=== PATIENT | female | born 1990 | race Hispanic/Latino ===

== ENCOUNTER 2021-09-28 13:45 | Inpatient (IN) | payer SELFPAY ==
[2021-09-28] MEDS ORDERED: Ringers Lactate 1,000 ML IV ONE (14:08)
[2021-09-28] MEDS ORDERED: CLINDAMYCIN 900MG/D5W 900 MG/50 ML IVPB IV ONE (14:09)
[2021-09-28] MEDS ORDERED: OXYTOCIN/LR 20 UNIT/1,000 ML BAG IV ONE (14:09)
[2021-09-28] MEDS ORDERED: METHYLERGONOVINE 0.2MG/ML AMP IM PRN (14:11)
[2021-09-28] MEDS ORDERED: BUTORPHANOL 1 MG/ML INJ IV PRN (14:11)
[2021-09-28] MEDS ORDERED: Ringers Lactate 1,000 ML IV PRN (14:11)
[2021-09-28] MEDS ORDERED: CARBOPROST TROME 250 MCG/ML IM PRN (14:11)
[2021-09-28] MEDS ORDERED: PROMETHAZINE INJ 25 MG/ML AMP IV PRN (14:11)
[2021-09-28 14:42] LABS: Absolute Lymphocytes (CBC) 1.5 K/uL (0.7-4.9); Hematocrit 28.4 % (36.0-45.0); Lymphocytes % 12.5 % (15.3-44.8); MPV 8.4 fL (7.6-11.3); RBC Red Blood Cell Count 4.12 M/uL (3.86-4.86)
[2021-09-28 14:48] LABS: Barbiturates NEGATIVE (NEGATIVE); Benzodiazepines NEGATIVE (NEGATIVE); Cocaine NEGATIVE (NEGATIVE); METHAMPHETAM NEGATIVE (NEGATIVE); Methadone NEGATIVE (NEGATIVE); Opiates NEGATIVE (NEGATIVE); Phencyclidine NEGATIVE (NEGATIVE); THC Cannibis NEGATIVE (NEGATIVE)
[2021-09-28] MEDS ORDERED: Ringers Lactate 1,000 ML IV SCH (15:00)
[2021-09-28] MEDS ORDERED: CLINDAMYCIN 900MG/D5W 900 MG/50 ML IVPB IV SCH (15:00)
[2021-09-28] MEDS ORDERED: OXYTOCIN/LR 20 UNIT/1,000 ML BAG IV SCH ×2 (15:00→17:00)
[2021-09-28 15:22] LABS: Urine Appearance Clear (Clear); Urine Bilirubin Negative (Negative); Urine Blood 1+ (Negative); Urine Color Yellow (Yellow); Urine Glucose Negative (Negative); Urine Protein 1+ (Negative); Urine Specific Gravity >=1.030 (1.005-1.030); Urine Urobilinogen 0.2 mg/dL (0.2-1.0)
[2021-09-28 15:24] LABS: Urine Microscopic Reflex ORDER UMIC
[2021-09-28 15:29] LABS: Urine Bacteria >50 /HPF (<20); Urine RBC <5 /HPF (NONE SEEN)
[2021-09-28] MEDS ORDERED: LIDOCAINE 1% MPF 30 ML VIAL ONE (15:31)
[2021-09-28 16:16] VITALS: BMI 28.8
[2021-09-28] MEDS ORDERED: ZOLPIDEM TARTRATE 5 MG TABLET PO PRN (16:43)
[2021-09-28] MEDS ORDERED: DOCUSATE NA/SENNA CONC 1 TAB PO PRN (16:43)
[2021-09-28] MEDS ORDERED: METHYLERGONOVINE 0.2 MG TAB PO PRN (16:43)
[2021-09-28] MEDS ORDERED: Oxycodone HCl/Acetaminophen 1 TAB TAB PO PRN ×2 (16:43)
[2021-09-28] MEDS ORDERED: BISACODYL 10 MG RECTAL SUPP RC PRN (16:43)
[2021-09-28] MEDS ORDERED: IBUPROFEN 200 MG TAB PO PRN (16:43)
[2021-09-28 17:13] LABS: Anisocytosis 1+; Blood Morphology Comment NOTED (NOT SEEN); Platelet Estimate ADEQ; White Blood Cell Scan OK (OK)
[2021-09-28] MEDS ORDERED: CLINDAMYCIN INJ 900 MG in NA CHLORIDE 0.9% 50 ML IV SCH (21:00)
--- NOTE | 2021-09-29 03:31 | DN ---
Date of Procedure: 09/28/2021 Surgeon: Mook Mccall Diagnoses: 1.Intrauterine , 38 weeks of gestation, delivered. 2.Active labor. 3.Single live . Procedure Preformed: Normal vaginal delivery with intact delivery of the placenta. Estimated Blood Loss: 250 cc. Anesthesia: None. Complications: None. Indications: Suzy Coombs is a 31-year-old female, G4, P3, with uncertain last menstrual neil od that give her due date of 11/06/2021 but third trimester sonogram showing a due date of 10/05/2021 , that puts her at about 38 weeks of gestation. Spontaneous labor today, came to the hospital contra cting about every 3 minutes apart, 5 cm dilated, in active phase. Maternal- condition is stable . Patient is GBS unknown. She is allergic to amoxicillin. Therefore, clindamycin was given to her. She was admitted, undergoing usual normal testing. Only thing remarkable is hemoglobin using the n ight range, otherwise unremarkable. I reevaluated her and performed the artificial rupture of membra ne showing clear fluid, 8 cm dilated, completely effaced, -1 station. Surely, she wished a second st age of labor. At this time, her legs were placed up in stirrups. Vaginal area prepped and washed by using diluted Betadine prep and she was draped in sterile fashion. The baby presented OP. With mat ernal pushes, the baby turned to OP and delivered in OP position. There was a nuchal cord around the neck that was reduced overhead, followed by delivery of the right shoulder first, followed by left s houlder, and delivery finally completed. Baby's nose and mouth were bulb suctioned, followed by clam ping of the cord. The baby has a vigorous cry with scores of 9 and 9. Cord blood obtained. T he placenta delivered in Isaac presentation. There was no episiotomy, no tears. Aggressive fundal massage was done. Pitocin infusion begin in the IV. Uterus was firm. No excessive bleeding. She delivers a female baby with scores of 9 and 9. Weight 7 pounds 6 ounces, a well baby delivered . BW/MODL Voice ID: [id number] Report ID: [id number]
[2021-09-29] MEDS ORDERED: TDAP (DIPHTH,PERTUSS(ACELL),TET VAC) 0.5 ML VIAL IMVAC ONE ×2 (09:00→15:17)
[2021-09-29 11:44] VITALS: TEMP 97.9
[2021-09-29 15:50] VITALS: BP 123/77
[2021-09-30 02:19] LABS: RPR (Rapid Plasma Reagin) NON-REACT (NON-REACT)
== END 2021-09-29 17:56 | disposition home or self-care (01) | DRG 807 ==
LOC: 2ND-WC 13:45
PROVIDERS: ADMIT Obstetrics & Gynecology; ATTEND Obstetrics & Gynecology
PROC: 10E0XZZ Delivery of Products of Conception, External Approach (ICD-10-PCS; principal; 2021-09-28)
PROC: 10907ZC Drainage of Amniotic Fluid, Therapeutic from Products of Conception, Via Natural or Artificial Opening (ICD-10-PCS; 2021-09-28)
DX: O99.824 Streptococcus B carrier state complicating childbirth (principal); Z37.0 Single live birth; Z3A.38 38 weeks gestation of pregnancy; Z20.822 Contact with and (suspected) exposure to COVID-19
CPT/HCPCS: 36415; 80307; 81003; 81015; 82947; 85025; 86592; 86762; 86850; 86900; 86901; 87086; 87088; 87340; G0433; J2210; J2590; J7120; U0003

== ENCOUNTER 2021-11-17 05:03 | Emergency (ER) | payer OTHER, SELFPAY ==
[2021-11-17 06:11] LABS: Urine Appearance Clear (Clear); Urine Bilirubin Negative (Negative); Urine Blood 2+ (Negative); Urine Color Yellow (Yellow); Urine Glucose Negative (Negative); Urine Protein 2+ (Negative); Urine Urobilinogen 0.2 mg/dL (0.2-1.0); Urine pH 5.5 (5.0-7.0)
[2021-11-17 06:25] LABS: Urine Bacteria >50 /HPF (<20); Urine Microscopic Reflex ORDER UMIC; Urine RBC >50 /HPF (NONE SEEN)
[2021-11-17 06:26] LABS: Urine Mucus 2+ /HPF (NONE SEEN); Urine Yeast FEW (NONE SEEN)
--- NOTE | 2021-11-17 06:53 | ER ---
Nurse's Notes [facility] Name: Suzy Coombs Age: 31 yrs Sex: Female : 1990 Arrival Date: 11/17/2021 Time: 05:03 Bed 20 Private MD: Diagnosis: Pyelonephritis acute Presentation: 11/17 05:20 Chief complaint: Patient states: "I have lower back pain it is really unbearable, it tw5 wraps around my side to my lower abdomen. ". Chief complaint: Patient states: "I am pretty sure that it is a UTI, I am having a burning sensation when I pee.". Coronavirus screen: Vaccine status: Patient reports being unvaccinated. Ebola Screen: Patient negative for fever greater than or equal to 101.5 degrees Fahrenheit, and additional compatible Ebola Virus Disease symptoms Patient denies exposure to infectious person. Patient denies travel to an Ebola-affected area in the 21 days before illness onset. Initial Sepsis Screen: Does the patient meet any 2 criteria? No. Patient's initial sepsis screen is negative. Does the patient have a suspected source of infection? Yes: Acute abdominal pain. Risk Assessment: Do you want to hurt yourself or someone else? Patient reports no desire to harm self or others. Onset of symptoms was September 14, 2021. 05:20 Method Of Arrival: Ambulatory tw5 05:20 Acuity: JABARI 3 tw5 Triage Assessment: 05:23 General: Appears uncomfortable, Behavior is calm, cooperative, appropriate for age. tw5 Pain: Complains of pain in low back area Pain currently is 8 out of 10 on a pain scale. GI: Patient currently denies diarrhea, nausea. 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 - Social history:: Smoking status: Patient denies any tobacco usage or history of. Screenin:09 Abuse screen: Denies threats or abuse. Denies injuries from another. Nutritional brenda screening: No deficits noted. Tuberculosis screening: No symptoms or risk factors identified. Fall Risk None identified. Assessment: 05:45 Reassessment: No changes from previously documented assessment. Pt was brought to room brenda #20 at 0540. 06:09 GI: Reports. : Reports pain flank(s), in lower back. brenda 06:11 GI: Abd is soft and non tender. brenda 07:00 Reassessment: RECD REPORT FROM BRIDGET HADDAD. 31YO HF P/W FLANK PAIN Patient denies pain at bp this time. 07:41 Reassessment: PT D/C HOME AMBULATORY, DX WITH ACUTE PYELONEPHRITIS. bp Vital Signs: 05:20 BP 112 / 72; Pulse 82; Resp 18; Temp 97.9(O); Pulse Ox 100% on R/A; Weight 72.57 kg; tw5 Height 5 ft. 2 in. (157.48 cm); Pain 8/10; 06:07 BP 115 / 70; Pulse 68; Resp 16; Temp 98.1; Pulse Ox 100% on R/A; Pain 0/10; brenda 05:20 Body Mass Index 29.26 (72.57 kg, 157.48 cm) tw5 ED Course: 05:03 Patient arrived in ED. bp1 05:17 Jaspreet Smart DO is Attending Physician. ms3 05:23 Triage completed. tw5 05:23 Arm band placed on right wrist. tw5 05:45 Bridget Merida, RN is Primary Nurse. brenda 06:09 No provider procedures requiring assistance completed. brenda 06:10 Bed in low position. Call light in reach. brenda 06:51 Bob Bates MD is Referral Physician. ms3 07:07 Primary Nurse role handed off by Bridget Merida, RN bp 07:07 Eddie Shoemaker, RN is Primary Nurse. bp 07:41 Patient did not have IV access during this emergency room visit. bp Administered Medications: No medications were administered Medication: 06:11 VIS not applicable for this client. brenda Outcome: 06:11 Condition: stable brenda 06:52 Discharge ordered by . ms3 07:41 Discharged to home ambulatory. bp 07:41 Discharge instructions given to patient, Instructed on discharge instructions, follow up and referral plans. medication usage, Demonstrated understanding of instructions, follow-up care, medications, Prescriptions given X 1. 07:42 Patient left the ED. bp Signatures: Eddie Shoemaker, RN RN bp Jaspreet Smart, DO DO ms3 Cira Abraham bp1 Mouna Carvalho tw5 Bridget Merida RN RN brenda Corrections: (The following items were deleted from the chart) 06:25 06:07 URINALYSIS+U.LAB.RYAN drawn and sent. brenda EDMS
--- NOTE | 2021-11-17 06:53 | EDPHYS ---
Physician Documentation [facility] Name: Suzy Coombs Age: 31 yrs Sex: Female : 1990 Arrival Date: 11/17/2021 Time: 05:03 Bed 20 Private MD: ED Physician Jaspreet Smart HPI: 11/17 05:51 This 31 yrs old Female presents to ER via Ambulatory with complaints of Low ms3 Back Pain, Abdominal Pain. 05:51 The patient presents with pain that is acute, with no known mechanism of injury. The ms3 symptoms are located in the right mid back. Location: suprpubic. The problem was sustained none. Onset: The symptoms/episode began/occurred 2 day(s) ago. Modifying factors: The patient symptoms are alleviated by nothing, the patient symptoms are aggravated by nothing. Associated signs and symptoms: Pertinent negatives: fever. Severity of symptoms: in the emergency department the symptoms a " 8" out of "10". . 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 - Social history:: Smoking status: Patient denies any tobacco usage or history of. ROS: 05:51 Constitutional: Negative for fever, and chills. Neck: Negative for injury, pain, and ms3 swelling, Cardiovascular: Negative for chest pain, and palpitations. Respiratory: Negative for shortness of breath, cough, wheezing, and pleuritic chest pain, Skin: Negative for injury, rash, and discoloration. 05:51 Abdomen/GI: Positive for abdominal pain. 05:51 All other systems are negative. Exam: 05:51 Constitutional: This is a well developed, well nourished patient who is awake, alert, ms3 and in no acute distress. Head/Face: Normocephalic, atraumatic. Neck: Trachea midline, no cervical lymphadenopathy. Supple, full range of motion without nuchal rigidity, or vertebral point tenderness. No Meningismus. Chest/axilla: Normal chest wall appearance and motion. Nontender with no deformity. Cardiovascular: Regular rate and rhythm with a normal S1 and S2. No gallops, murmurs, or rubs. Normal PMI, no JVD. No pulse deficits. Respiratory: Lungs have equal breath sounds bilaterally, clear to auscultation and percussion. No rales, rhonchi or wheezes noted. No increased work of breathing, no retractions or nasal flaring. 05:51 Abdomen/GI: Inspection: abdomen appears normal, Bowel sounds: normal, Palpation: mild abdominal tenderness, in the suprapubic area. Vital Signs: 05:20 BP 112 / 72; Pulse 82; Resp 18; Temp 97.9(O); Pulse Ox 100% on R/A; Weight 72.57 kg; tw5 Height 5 ft. 2 in. (157.48 cm); Pain 8/10; 06:07 BP 115 / 70; Pulse 68; Resp 16; Temp 98.1; Pulse Ox 100% on R/A; Pain 0/10; brenda 05:20 Body Mass Index 29.26 (72.57 kg, 157.48 cm) tw5 MDM: 05:47 Patient medically screened. ms3 05:51 Differential diagnosis: UTI, Pyelonephritis. Data reviewed:. ms3 11/17 06:11 Order name: Urinalysis; Complete Time: 06:51 EDMS 11/17 05:46 Order name: Urine Dipstick-Ancillary (obtain specimen); Complete Time: 07:10 ms3 11/17 06:26 Order name: Urine Microscopic Only; Complete Time: 06:51 EDMS 11/17 06:28 Order name: Urine Culture EDMS Administered Medications: No medications were administered Disposition Summary: 11/17/21 06:52 Discharge Ordered Location: Home ms3 Condition: Stable ms3 Diagnosis - Pyelonephritis acute ms3 Followup: ms3 - With: Bob Bates MD - When: 2 - 3 days - Reason: Recheck today's complaints Discharge Instructions: - Discharge Summary Sheet ms3 - Pyelonephritis, Adult, [id number] ms3 Forms: - Medication Reconciliation Form ms3 - Thank You Letter ms3 - Antibiotic Education ms3 - Prescription Opioid Use ms3 Prescriptions: - cefpodoxime 200 mg Oral Tablet - take 2 tablets by ORAL route every 12 hours for 10 days with food; 20 tablet; ms3 Refills: 0, Product Selection Permitted Signatures: Dispatcher [employer] EDMS Jaspreet Smart DO DO ms3 Marcus Carvalhofany tw5 Corrections: (The following items were deleted from the chart) 06:25 05:47 URINALYSIS+U.LAB.BRZ ordered. EDMS EDMS
[2021-11-17 08:07] VITALS: O2SAT 100
[2021-11-17 08:15] VITALS: BP 115/70; TEMP 98.1
== END 2021-11-17 07:42 | disposition home or self-care (01) ==
LOC: ER 05:03
DX: N10 Acute pyelonephritis (principal); Z88.1 Allergy status to other antibiotic agents
CPT/HCPCS: 81003; 81015; 87077; 87086; 87088; 87186; 99282